=== PATIENT | male | born 1995 | race Caucasian/White ===

== ENCOUNTER 2019-11-15 13:24 | Emergency (ER) | payer OTHER, SELFPAY ==
[2019-11-15 13:36] VITALS: BP 133/68; PULSE 95; RESP 20; TEMP 37.6; O2SAT 99
--- NOTE | 2019-11-15 13:45 | ED.URI ---
HPI - URI/Sore Throat General Chief Complaint: Upper Respiratory Infection Stated Complaint: fever/sore throat/fatigue Time Seen by Provider: 11/15/19 13:45 Source: patient and RN notes reviewed Mode of arrival: ambulatory Limitations: no limitations History of Present Illness HPI Narrative: 24-year-old male who presents to express care with complaints of cough, congestion and body aches since yesterday at 4 PM. Patient states that he has had nasal congestion with drainage, cough which is productive of yellow mucous, fevers and chills and generalized body aches. Patient states that he does not have any ear pain, states some sore throat but denies any acute pain or difficulty with swallowing. Patient does have a history of asthma, denies any acute dyspnea or wheezing with SAO2 99% on room air, patient states that he has an inhaler but has not had to use it in a long time. MD elicited complaint: fever, cough, sore throat, rhinorrhea and nasal congestion Pertinent past history: asthma Onset (ago): hour(s) (Since 4 pm yesterday) Consistency: progressively worsening Severity: moderate Pain scale (0-10): 6 Description of mucous: yellow Able to tolerate fluids by mouth: Yes Exacerbating factors: swallowing and exertion Relieving factors: nothing Associated symptoms: fever, chills, rhinorrhea, nasal congestion, sore throat, cough and other (bodyaches) Treatments prior to arrival: ibuprofen Related Data Home Medications Medication Instructions Recorded Confirmed citalopram 20 mg DAILY 11/15/19 11/15/19 Allergies Allergy/AdvReac Type Severity Reaction Status Date / Time No Known Allergies Allergy Verified 06/02/13 20:12 Review of Systems Review of Systems: Narrative: CONSTITUTIONAL: Positive fever, chills, or sweats. EYES: Denies visual changes, redness, or discharge. ENT: Positive rhinorrhea, congestion, sore throat, no otalgia. CARDIOVASCULAR: Denies chest pain, palpitations, or edema. RESPIRATORY: positive cough denies dyspnea. GASTROINTESTINAL: Denies abdominal pain, nausea, vomiting, or diarrhea. GENITOURINARY: Denies dysuria or hematuria. SKIN: Denies rash or itching. MUSCULOSKELETAL: Denies back pain, joint pain, or myalgia. NEUROLOGIC: Denies headache, numbness, or weakness. PSYCHIATRIC: Denies anxiety or depression. All systems reviewed & are unremarkable except as noted in HPI and below PMFSH Past Medical History Medical History (Updated 11/15/19 @ 13:57 by Christina Huitron NP) Anxiety and depression Asthma Social History Social History (Updated 11/15/19 @ 13:57 by Christina Huitron NP) Smoking status: Never smoker Living arrangements: with family Occupation/Education: student Gender identity (if verbalized by the patient): Male Comments At time of signature, agree with nursing past medical, social history. There is no relevant family history pertinent to the presenting complaint Exam Narrative: Exam Narrative: GENERAL: ill-appearing, well-nourished, and in no acute distress. HEAD: Normocephalic, atraumatic. EYES: PERRLA and EOMI. ENT: Nares red,clear rhinorrhea no epistaxis. Mucous membranes moist. NECK: Supple.no lymphadenopathy CHEST: Clear to auscultation. No respiratory distress. cough which is productive with SAO2 99% on room air, no wheezing or acute dyspnea noted HEART: Regular rate and rhythm. No murmur heard. Normal peripheral pulses. ABDOMEN: Soft, nontender, nondistended, normal active bowel sounds. EXTREMITIES: Normal range of motion. No edema. SKIN: Warm, dry, no rash. NEURO: No focal deficits. Alert and oriented x3. Course Vital Signs Vital signs: Vital Signs Temperature 37.6 C 11/15/19 13:36 Pulse Rate 95 11/15/19 13:36 Respiratory Rate 11/15/19 13:36 Blood Pressure 133/68 11/15/19 13:36 Pulse Oximetry 99 11/15/19 13:36 Temperature 37.6 C 11/15/19 13:36 Pulse Rate 95 11/15/19 13:36 Respiratory Rate 11/15/19 13:36 Blood Pressure 133/6
== END 2019-11-15 14:02 | disposition home or self-care (01) ==
PROVIDERS: Emergency Provider Registered Nurse; PCP Family Medicine
DX: J10.1 Influenza due to other identified influenza virus with other respiratory manifestations (principal); J45.909 Unspecified asthma, uncomplicated; F41.9 Anxiety disorder, unspecified; F32.9 Major depressive disorder, single episode, unspecified
CPT/HCPCS: 87804; 99213; G0463

== ENCOUNTER 2020-08-02 08:34 | Outpatient (CLI) | payer OTHER, SELFPAY ==
--- NOTE | 2020-08-26 00:33 | WPDHOMESLEEP ---
Sleep Study - Home Unattended Date of Study: 08/02/20 Ordering Provider: Radha Witt PA-C Interpreting Physician: Mami Fernandes MD Home Sleep Study Type: Apnea Link Air Height: 1.85 m Weight: 94.801 kg Body Mass Index: 27.6 [place]: 9 Reason for Sleep Study Loud snoring, witnessed apneas, non-refreshing sleep Sleep History Bronson Henley is a 25 year-old man who has a history of loud snoring. In the last year his partner has reported witnessed apneas lasting from 10-20 seconds. Never feels rested in the morning and his blood pressure is now elevated. He feels depressed and anxious due to poor sleep over the last year and a half. He is on treatment with citalopram. There is a family history of sleep problems with his mother having a diagnosis of sleep apnea. A prior sleep study in 2014 did not show an apnea-hypopnea index high enough to warrant treatment. The patient wakes up during the night, has difficulty waking in the morning. He does not awaken at night with heartburn, belching or coughing. He frequently awakens from sleep feeling short of breath. He frequently has trouble sleeping with a cold. He frequently gasps for breath at night, frequently has breathing problems reported to him by others, frequently sweats excessively at night and frequently notices his heart pounding or beating irregularly at night. He occasionally falls asleep during the day but never involuntarily or while driving. He does not have loss of muscle tone with strong emotion. Occasionally has daytime difficulties due to excessive sleepiness. 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 He does not feel paralyzed on waking or falling asleep and does not have vivid dreamlike scenes upon awakening or falling asleep. He is not afraid to go to sleep. He frequently has nightmares. and frequently remembers his dreams. He constantly has racing thoughts, frequently has feelings of sadness, depression and anxiety. He constantly has muscular tension. He occasionally notices parts of his body jerking, rarely kicks at night. He does not have crawling and aching feelings in his legs at night. He does not have leg pain during the night. He does not have morning jaw pain. He frequently grinds his teeth during sleep. He frequently is bothered by pain during the day but only rarely is awakened by pain at night. He constantly wakes up feeling stiff in the morning with sore achy muscles and pain in the neck and spine. He constantly has memory and concentration difficulties. Normal bedtime is 11:00 p.m. falling asleep within 10-15 minutes, typically waking 1-2 times at night. It takes him less than 30 minutes to return to sleep. He wakes in the morning between 7 and 8:00 a.m.. On weekends he stays awake later, goes to bed between 11 and 12 midnight and wakes between 8 and 10 in the morning. He denies taking naps. A short nap is not refreshing. He is usually drowsy in the morning for 2 hours or longer. He feels better in the evening compared to the morning. Habits: Never smoked tobacco. Caffeine 1-3 cups of coffee per day. Alcohol; 0 to 2 per day. No recreational drugs. [facility] Past Medical History Medical History (Updated 08/26/20 @ 00:51 by Mami Fernandes MD) Anxiety and depression Asthma History of vertebral fracture Social History Social History Smoking status: Never smoker Gender identity (if verbalized by the patient): Male Medications Home Medications Medication Instructions Recorded Confirmed Type citalopram 20 mg DAILY 11/15/19 11/15/19 History oseltamivir [Tamiflu] 75 mg PO Q12H 5 Days #10 cap 11/15/19 Rx Sleep Procedure This test was performed using 4 channel monitoring including respiratory effort channel, snoring channel, heart rate channel, and oxygen saturation channel. This study was scored using CMS guidelines. Sleep Architecture Not applicable for home sleep test. Res
[2020-08-26 00:52] VITALS: BMI 27.6
== END 2020-08-02 08:35 | disposition home or self-care (01) ==
LOC: ANHCSM 08:35
PROVIDERS: PCP Family Medicine; Visit Provider Physician Assistant
DX: G47.33 Obstructive sleep apnea (adult) (pediatric) (principal)
CPT/HCPCS: 95806

== ENCOUNTER 2020-09-20 02:38 | Outpatient (CLI) | payer OTHER, SELFPAY ==
[2020-09-20 16:54] LABS: SARS-CoV-2 RNA PCR Negative
== END 2020-09-20 02:39 | disposition home or self-care (01) ==
LOC: ANHCOVIDDT 02:38
PROVIDERS: PCP Family Medicine; Visit Provider Internal Medicine Critical Care Medicine
DX: R68.89 Other general symptoms and signs (principal); Z20.828 Contact with and (suspected) exposure to other viral communicable diseases
CPT/HCPCS: 87635; C9803; U0003

== ENCOUNTER 2020-09-22 08:30 | Outpatient (CLI) | payer OTHER, SELFPAY ==
--- NOTE | 2020-11-08 12:58 | WPDSLEEPSTUD ---
Sleep Study Date of Study: 09/22/20 Ordering Provider: Man Price MD Interpreting Physician: Mami Fernandes MD Sleep Study Type: CPAP Titration Height: 1.85 m Weight: 95.708 kg Body Mass Index: 27.8 Neck Circumference: 41.91 cm [place]: 9 Reason for Sleep Study Home sleep test August 02, 2020 with mild obstructive sleep apnea, AHI 5.4, desaturation to 88% with central apneas noted; he presents for a CPAP titration. Sleep History Bronson Boston is a 25 year old man with mild sleep apnea seen on a home sleep test on August 02, 2020, his AHI was 5.4 with desaturation to 88% and had central apneas noted. In the last year his partner has reported witnessed apneas lasting from 10-20 seconds. Never feels rested in the morning and his blood pressure is now elevated. He feels depressed and anxious due to poor sleep over the last year and a half. He is on treatment with citalopram. There is a family history of sleep problems with his mother having a diagnosis of sleep apnea. A prior sleep study in 2014 did not show an apnea-hypopnea index high enough to warrant treatment. The patient wakes up during the night, has difficulty waking in the morning. He does not awaken at night with heartburn, belching or coughing. He frequently awakens from sleep feeling short of breath. He frequently has trouble sleeping with a cold. He frequently gasps for breath at night, frequently has breathing problems reported to him by others, frequently sweats excessively at night and frequently notices his heart pounding or beating irregularly at night. He occasionally falls asleep during the day but never involuntarily or while driving. He does not have loss of muscle tone with strong emotion. Occasionally has daytime difficulties due to excessive sleepiness. 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 He does not feel paralyzed on waking or falling asleep and does not have vivid dreamlike scenes upon awakening or falling asleep. He is not afraid to go to sleep. He frequently has nightmares. and frequently remembers his dreams. He constantly has racing thoughts, frequently has feelings of sadness, depression and anxiety. He constantly has muscular tension. He occasionally notices parts of his body jerking, rarely kicks at night. He does not have crawling and aching feelings in his legs at night. He does not have leg pain during the night. He does not have morning jaw pain. He frequently grinds his teeth during sleep. He frequently is bothered by pain during the day but only rarely is awakened by pain at night. He constantly wakes up feeling stiff in the morning with sore achy muscles and pain in the neck and spine. He constantly has memory and concentration difficulties. Normal bedtime is 11:00 p.m. falling asleep within 10-15 minutes, typically waking 1-2 times at night. It takes him less than 30 minutes to return to sleep. He wakes in the morning between 7:00 and 8:00 a.m.. On weekends he stays awake later, goes to bed between 11 and 12 midnight and wakes between 8 and 10 in the morning. He denies taking naps. A short nap is not refreshing. He is usually drowsy in the morning for 2 hours or longer. He feels better in the evening compared to the morning. Habits: Never smoked tobacco. Caffeine 1-3 cups of coffee per day. Alcohol; 0 to 2 per day. No recreational drugs. [facility] Past Medical History Medical History Anxiety and depression Asthma History of vertebral fracture Social History Social History (Updated 11/08/20 @ 13:02 by Mami Fernandes MD) Smoking status: Never smoker Alcohol intake: current Alcohol use details: 0-2 per day Gender identity (if verbalized by the patient): Male Medications Home Medications Medication Instructions Recorded Confirmed Type citalopram 20 mg DAILY 11/15/19 11/15/19 History oseltamivir [Tamiflu] 75 mg PO Q12H 5 Days #10 cap 11/15/19 Rx
[2020-11-08 13:14] VITALS: BMI 27.8
== END 2020-09-22 08:31 | disposition home or self-care (01) ==
LOC: ANHCSM 08:30
PROVIDERS: PCP Family Medicine; Visit Provider Family Medicine
DX: G47.31 Primary central sleep apnea (principal); G47.33 Obstructive sleep apnea (adult) (pediatric)
CPT/HCPCS: 95811

== ENCOUNTER → 2021-08-24 01:52 | Outpatient (CLI) | payer BC, SELFPAY ==
[2021-08-24 18:14] LABS: SARS-CoV-2 RNA PCR Negative
== END ==
PROVIDERS: PCP Family Medicine; Visit Provider Physician Assistant
DX: R68.89 Other general symptoms and signs (principal); Z20.822 Contact with and (suspected) exposure to COVID-19
CPT/HCPCS: C9803; U0003; U0005